=== PATIENT | female | born 1960 | race Caucasian/White ===

== ENCOUNTER → 2017-09-17 | Outpatient (REF) | payer OTHER ==
[~2017-09-17] MED LIST: AZE137NAPT NS; AZIT1PAC21 PO; CEFU250 PO; CIT20 PO; CLI150 PO; CYCL10TA29 PO; DOXY-229 PO; MIRAPEX PO; PER PO; PHEN120S16 PO; PRAV10TA45 PO; TRA50 PO; [UNRECOGNIZED DRUG - REMARK]
[2017-09-17 10:30] LABS: PLATELET COUNT, AUTOMATED 163 K/uL (150-450)
[2017-09-17 10:34] LABS: LDL CHOLESTEROL 117 mg/dl
== END ==
LOC: ZZSTITCHES 10:21
PROVIDERS: ATTEND Physician Assistant
DX: R06.00 Dyspnea, unspecified (principal); I10 Essential (primary) hypertension; E78.4 Other hyperlipidemia; E03.9 Hypothyroidism, unspecified; E66.9 Obesity, unspecified
CPT/HCPCS: 82040; 82247; 82310; 82374; 82435; 82465; 82565; 82947; 83036; 83718; 83880; 84075; 84132; 84155; 84295; 84443; 84450; 84460; 84478; 84520; 85025

== ENCOUNTER 2018-04-03 09:24 | Emergency (ER) | payer SELFPAY ==
[2018-04-03] MEDS ORDERED: LEV125 PO (09:35)
--- NOTE | 2018-04-03 10:06 | ER Report ---
History and Physical Time Seen By MD: 10:00 Hx. of Stated Complaint: PT PRESENTS WITH C/O R SHOULDER AND R FOOT PAIN. DENIES TRAUMA, BUT HAS HAD PLANTAR FASCITIS FOR AWHILE, AND SHE LIFTS HEAVY OBJECTS AT WORK, BUT DOES NOT RECALL A SPECIFIC INCIDENT THAT INJURED HER SHOULER HPI/ROS CHIEF COMPLAINT: Atraumatic right shoulder and right foot pain. HISTORY OF PRESENT ILLNESS: Patient is a 57-year-old female who states she is ambidextrous. She states over the past 2-3 week she's been having pain to her right shoulder mostly in the posterior aspect. She notes most of the pain when she is at approximately 70 of abduction and external rotation of the right shoulder. She also notes intermittent pain to the anterior shoulder with no motion at all. She denies any numbness or tingling into the hands. She denies any specific injury but states she lifts quite a lot of objects at work. She also is complaining of pain to the bottom of the right foot along the metatarsal phalangeal joint of the 2nd digit of the right foot. She has been previously told at urgent care that this is "plantar fasciitis". This pain is intermittent. She denies any fevers or chills. She denies any traumatic injury to the foot. REVIEW OF SYSTEMS: Respiratory: No cough, no dyspnea. Cardiovascular: No chest pain, no palpitations. Gastrointestinal: No vomiting, no abdominal pain. Musculoskeletal: Right shoulder pain, right foot pain Allergies: Coded Allergies: meperidine (Verified Allergy, Intermediate, THROW UP AND PASS OUT, 04/03/18) hydrocodone (Verified Allergy, Mild, HALLUCINATE, 04/03/18) Penicillins (Verified Allergy, Unknown, 04/03/18) doxycycline (Verified Adverse Reaction, Intermediate, PASS OUT, 04/03/18) erythromycin base (Verified Adverse Reaction, Intermediate, PASS OUT, ) Home Meds Reported Medications Levothyroxine Sodium (LEVOTHYROXINE SODIUM) 0.125 Mg Tab, 0.125 MG PO QDAY, TAB 04/03/18 Pravastatin Sodium (Pravachol) 10 Mg Tablet, 40 MG PO QDAY, 0 Refills 09/21/11 [Mirapex] No Conflict Check, 0.75 MG PO HS, 0 Refills 09/21/11 Citalopram Hydrobromide (Celexa) 20 Mg Tab, 40 MG PO DAILY DAILY 09/21/11 Discontinued Reported Medications Oxycodone/Acetaminophen (OXYCODONE/ACETAMINOPHEN 5MG/325 MG) 5 Mg/325 Mg Tab, 1 - 2 TAB PO Q6H 02/19/12 Cyclobenzaprine Hcl (FLEXERIL (OR EQUIV)) 10 Mg Tab, 10 MG PO TID for 5 Days 02/19/12 Cyclobenzaprine Hcl (FLEXERIL (OR EQUIV)) 10 Mg Tab, 10 MG PO TID for 5 Days 02/19/12 Discontinued Scripts Doxycycline Monohydrate (DOXYCYCLINE MONOHYDRATE) 100 Mg Tablet, 100 MG PO BID, #20 Prov:MERLENE HILTON MD 09/04/16 Phenylephrine Hcl/Cod/Prometh (Phenergan Vc/Cod Syrup) 120 Ml Syrup, 120 ML PO Q6-8H, #4 0 Refills Prov:ELENA BRENNER MD 09/21/11 Past Medical/Surgical History Noncontributory towards this chief complaint. Hx Smoking: No Hx Substance Use Disorder: No Hx Alcohol Use: No Constitutional Vital Sign - Last 24 Hours 04/03/18 04/03/18 04/03/18 09:28 10:30 10:37 Temp 98.1 Pulse 76 65 Resp 20 B/P (MAP) 137/90 129/83 (98) Pulse Ox 94 91 O2 Delivery Room Air Physical Exam General appearance: Alert no distress. Respiratory: Chest is non tender, lungs are clear to auscultation. Cardiac: Regular rate and rhythm Examination of the right shoulder reveals a normal contour to the shoulder patient has sensation intact over the deltoid. Patient has painful passive and active range of motion with abduction at the shoulder greater than 70 along with external rotation. Patient has a negative apprehension test Examination of the Right hand reveals no acute deformity. The patient is able to give a thumbs up sign, is able to make an okay sign, and is able to AB duct the fingers. Sensation is intact over the dorsal 1st web space, the volar aspect of the 2nd finger, and the volar aspect of the 5th finger. Capillary refill is brisk. Examination of the right foot reveals no acute deformity. The right ankle is normal. Patient reports pain along the 2nd metatarsal phalangeal joint. There is no obvious swelling or erythema. Medical Decision Making EKG/Imaging Imaging FACILITY: [facility] PATIENT NAME: Annie Post : 1960 MR: [id number] V: [id number] EXAM DATE: [id number] ORDERING PHYSICIAN: NORMA AUGUSTIN [place]CHN[place] [facility] [place] : 1960 Visit/Account:[id number] Date of Sevice: 04/03/2018 Exam type: FOOT 3 VIEW RIGHT History: Right shoulder and foot pain, no known injury. Comparison: None. Findings: There is no evidence of acute fracture or dislocation involving the right foot. Incidentally noted are degenerative changes at the insertion the Achilles tendon and a small right calcaneal spur. Spurring is noted along the dorsal aspect of the tarsal metatarsal articulations on the lateral view IMPRESSION: 1. Small right calcaneal spur Degenerative changes at the insertion the Achilles tendon Spurring is noted along the dorsal aspect of the tarsometatarsal articulation Report Dictated By: Lakshmi Venegas MD at 04/03/2018 11:16 AM Report E-Signed By: Lakshmi Venegas MD at 04/03/2018 11:18 AM WSN:[email or web address] FACILITY: [facility] PATIENT NAME: Annie Post : 1960 MR: [id number] V: [id number] EXAM DATE: [id number] ORDERING PHYSICIAN: NORMA AUGUSTIN TECHNOLOG[place] [facility] [place] : 1960 Visit/Account:[id number] Date of Sevice: 04/03/2018 Exam type: SHOULDER MIN 2 VIEWS RIGHT History: Right foot and right shoulder pain, no known trauma Comparison: None. Findings: Two views the right shoulder demonstrate no evidence of acute fracture or dislocation. There are moderate degenerative changes at the right AC joint. IMPRESSION: 1. Moderate degenerative changes of the right AC joint No evidence of acute fracture-dislocation involving the right shoulder Report Dictated By: Lakshmi Venegas MD at 04/03/2018 11:15 AM Report E-Signed By: Lakshmi Venegas MD at 04/03/2018 11:16 AM WSN:[email or web address] ED Course/Re-evaluation ED Course 04/03/2018 10:05:07 am plan at this time will be x-ray of the right shoulder and right foot. Doubt acute bony pathology. Likely related to either overuse or potentially arthritis. Decision to Disposition Date: Apr 03, 2018 Decision to Disposition Time: 11:26 Depart Departure Latest Vital Signs Vital Signs Date Time Temp Pulse Resp B/P (MAP) Pulse Ox O2 Delivery O2 Flow Rate FiO2 04/03/18 10:37 129/83 (98) 04/03/18 10:30 65 91 04/03/18 09:28 98.1 20 Room Air Impression: Primary Impression: Shoulder impingement Additional Impression: Foot pain, right Condition: Condition Unchanged Disposition: HOME OR SELF-CARE Referrals: HERON DILLARD (PCP) 1 Week for reevaluation [facility] Patient Instructions: Exercises for Internal and External Shoulder Rotation (ED ), Exercises for Shoulder Abduction and Adduction (ED), Foot Sprain (ED), Shoulder Pain (ED) Problem Qualifiers Primary Impression: Shoulder impingement Laterality: right Qualified Codes: M75.41 - Impingement syndrome of right shoulder NORMA AUGUSTIN MD Apr 03, 2018 10:06
[2018-04-03 11:00] VITALS: BP 126/82
--- NOTE | 2018-04-03 11:20 | RADIOLOGY IMAGING REPORT ---
FACILITY: [facility] PATIENT NAME: Annie Post : 1960 MR: [id number] V: [id number] EXAM DATE: ORDERING PHYSICIAN: NORMA AUGUSTIN TECHNOLOGIST: Location: [facility] Patient: Annie Post : 1960 Visit/Account:[id number] Date of Sevice: 04/03/2018 Exam type: SHOULDER MIN 2 VIEWS RIGHT History: Right foot and right shoulder pain, no known trauma Comparison: None. Findings: Two views the right shoulder demonstrate no evidence of acute fracture or dislocation. There are mod erate degenerative changes at the right AC joint. IMPRESSION: 1. Moderate degenerative changes of the right AC joint No evidence of acute fracture-dislocation involving the right shoulder Report Dictated By: Lakshmi Venegas MD at 04/03/2018 11:15 AM Report E-Signed By: Lakshmi Venegas MD at 04/03/2018 11:16 AM WSN:MOR
[2018-04-03] MEDS ORDERED: NAPR375T44 PO (11:22)
--- NOTE | 2018-04-03 11:22 | RADIOLOGY IMAGING REPORT ---
FACILITY: [facility] [place] PATIENT NAME: Annie Post : 1960 MR: [id number] V: [id number] EXAM DATE: ORDERING PHYSICIAN: NORMA AUGUSTIN TECHNOLOGIST: Location: [facility] Patient: Annie Post : 1960 Visit/Account:[id number] Date of Sevice: 04/03/2018 Exam type: FOOT 3 VIEW RIGHT History: Right shoulder and foot pain, no known injury. Comparison: None. Findings: There is no evidence of acute fracture or dislocation involving the right foot. Incidentally noted are degenerative changes at the insertion the Achilles tendon and a small right calcaneal spur. Spur ring is noted along the dorsal aspect of the tarsal metatarsal articulations on the lateral view IMPRESSION: 1. Small right calcaneal spur Degenerative changes at the insertion the Achilles tendon Spurring is noted along the dorsal aspect of the tarsometatarsal articulation Report Dictated By: Lakshmi Venegas MD at 04/03/2018 11:16 AM Report E-Signed By: Lakshmi Venegas MD at 04/03/2018 11:18 AM WSN:[email or web address]
== END 2018-04-03 11:31 | disposition home or self-care (01) ==
LOC: ER 09:40
DX: M75.41 Impingement syndrome of right shoulder (principal); M79.671 Pain in right foot
CPT/HCPCS: 99284

== ENCOUNTER → 2018-07-06 | Outpatient (CLI) | payer OTHER ==
[~2018-07-06] MED LIST changes: +LEV125 PO; +NAPR375T44 PO
--- NOTE | 2018-07-07 15:47 | RADIOLOGY IMAGING REPORT ---
[place] [facility] [place] NAME: WALESKA MCMAHAN : [id number] MR: [id number] V: [id number] EXAM DATE: [id number] ORDERING PHYSICIAN: STEVEN PATEL TECHNOLOGIST: Audrey Stehi PROCEDURE:BILATERAL DIGITAL SCREENING MAMMOGRAM WITH CAD ASSISTED INTERPRETATION & 3D TOMOSYNTHESIS COMPARISON:Prior mammogram 12/03/15 INDICATIONS:SCREENING FINDINGS: The breast parenchyma is predominantly fatty replaced. There are no dominant masses or worrisome microcalcification. DIAGNOSTIC CATEGORY 1--NEGATIVE. RECOMMENDATIONS: ROUTINE MAMMOGRAM AND CLINICAL EVALUATION. IMPRESSION: BIRADS 1: Negative. Dictated by: Ravinder Falcon M.D. on 07/06/2018 at 16:14 Transcribed by: DELVIS on 07/07/2018 at 7:47 Approved by: Morales Saba M.D. on 07/07/2018 at 15:46 [facility]
== END ==
LOC: MAMO 00:45 → EDSTATUS 14:04 → MAMO 14:04 → EDSTATUS 14:10
PROVIDERS: ATTEND Nurse Practitioner
DX: Z12.31 Encounter for screening mammogram for malignant neoplasm of breast (principal)
CPT/HCPCS: 77063; 77067